=== PATIENT | male | born 1960 | race Caucasian/White ===

== ENCOUNTER 2016-10-10 12:07 | Emergency (ER) | payer BC ==
[2016-12-27] MEDS ORDERED: MOBIC15 MG PO (23:12)
[2016-12-27] MEDS ORDERED: EPIPEN0.3 IM (23:12)
== END 2016-10-10 13:28 | disposition home or self-care (01) ==
LOC: ER 12:07
PROC: 0HQGXZZ Repair Left Hand Skin, External Approach (ICD-10-PCS; principal; 2016-10-10)
DX: S61.412A Laceration without foreign body of left hand, initial encounter (principal); Z91.038 Other insect allergy status; W26.0XXA Contact with knife, initial encounter
CPT/HCPCS: 90471; 90714; 99283